=== PATIENT | female | born 1990 | race Caucasian/White ===

== ENCOUNTER 2019-08-19 04:09 | Outpatient (CLI) | payer OTHER ==
[~2019-08-19] VITALS: Ht 167.6 cm; Wt 116.5 kg
[2019-08-19 04:44] VITALS: BP 115/62
[2019-08-19] MEDS ORDERED: PRENTAB9 PO (05:10)
[2019-08-19 07:45] VITALS: BP 114/60
== END 2019-08-19 08:10 | disposition home or self-care (01) ==
LOC: M LDO 04:09
PROVIDERS: ATTEND Obstetrics & Gynecology
DX: O99.89 Other specified diseases and conditions complicating pregnancy, childbirth and the puerperium (principal); R10.9 Unspecified abdominal pain; Z3A.29 29 weeks gestation of pregnancy
CPT/HCPCS: 59025; G0378; G0463

== ENCOUNTER → 2019-10-14 | Outpatient (CLI) | payer OTHER ==
[~2019-10-14] MED LIST: PRENTAB9 PO
[2019-10-14 16:36] LABS: FOLATE 18.5 NG/ML
== END ==
LOC: M LAB 14:44
PROVIDERS: ATTEND Advanced Practice Midwife
DX: O99.280 Endocrine, nutritional and metabolic diseases complicating pregnancy, unspecified trimester (principal); E04.2 Nontoxic multinodular goiter

== ENCOUNTER → 2019-10-14 | Outpatient (CLI) | payer OTHER ==
[2019-10-14 15:58] LABS: FREE T4 0.88 NG/DL (0.76-1.46); THYROID STIMULATING HORMONE 1.36 uIU/ML (0.358-3.740)
== END ==
LOC: M LAB 14:55
PROVIDERS: ATTEND Internal Medicine Endocrinology, Diabetes & Metabolism
DX: E04.2 Nontoxic multinodular goiter (principal)